=== PATIENT | male | born 1975 | race Caucasian/White ===

== ENCOUNTER 2020-10-07 17:44 | Emergency (ER) | payer OTHER ==
[2020-10-07] MEDS ORDERED: Ondansetron ODT 8 MG TAB ONE (18:06)
[2020-10-07] MEDS ORDERED: Morphine 10 MG/ML VIAL ONE (18:06)
[2020-10-07] MEDS ORDERED: HYDROcodone/Acetaminophen 5/325 mg Tablet ONE (18:37)
[2020-10-07] MEDS ORDERED: Boostrix 0.5 ML (Tdap) VIAL ONE (19:16)
[2020-10-07] MEDS ORDERED: Ketorolac Tromethamine 30 MG/ML VIAL ONE (19:25)
[2020-10-07] MEDS ORDERED: Bacitracin 1 PK ONE ×2 (20:33→21:01)
== END 2020-10-07 21:04 | disposition home or self-care (01) ==
LOC: ERS 17:44
DX: S62.617A Displaced fracture of proximal phalanx of left little finger, initial encounter for closed fracture (principal); S60.416A Abrasion of right little finger, initial encounter; S30.810A Abrasion of lower back and pelvis, initial encounter; S80.812A Abrasion, left lower leg, initial encounter; S80.811A Abrasion, right lower leg, initial encounter; F17.210 Nicotine dependence, cigarettes, uncomplicated; Z23 Encounter for immunization; V29.9XXA Motorcycle rider (driver) (passenger) injured in unspecified traffic accident, initial encounter
CPT/HCPCS: 71045; 90471; 90715; 93005; 96372; J1885; J2270; Q0162